=== PATIENT | male | born 1960 | race African-American/Black ===

== ENCOUNTER 2017-02-19 08:04 | Inpatient (IN) | payer MEDICAID, OTHER ==
[~2017-02-19] VITALS: Ht 182.9 cm; Wt 122.5 kg
[~2017-02-19 08:04] MED LIST: ALD50; ALLO100T57; FURO-151; GEMF600T3; KEPRA; NIFE60TA83; TIOT18CA3
[2017-02-19] MEDS ORDERED: FUROSEMIDE 40MG/4ML VIAL IV STA (09:11)
[2017-02-19 09:42] LABS: BASOPHILS % 0.9 % (0.0-2.0); EOSINOPHILS % 1.1 % (0.0-5.0); HEMATOCRIT. 41.9 % (42.0-52.0); HEMOGLOBIN. 13.8 g/dL (14.0-18.0); LYMPHOCYTES % 18.6 % (20.0-50.0); MEAN CORPUSCULAR HEMOGLOBIN 24.2 pg (28.0-32.0); MEAN CORPUSCULAR VOLUME 73.7 fL (80.0-94.0); MONOCYTES % 8.4 % (2.0-8.0); PLATELET 141 x1000/uL (130-400); RED BLOOD CELL COUNT 5.69 mill/uL (4.7-6.1); RED CELL DISTRIBUTION WIDTH 14.4 % (11.6-14.6)
[2017-02-19 09:50] LABS: PARTIAL THROMBOPLASTIN TIME 27.5 sec (23.4-31.0); PROTHROMBIN TIME 10.7 sec (9.4-11.6)
[2017-02-19 10:01] LABS: CARBON DIOXIDE 29 mEq/L (21-32); CHLORIDE 104 mEq/L (98-107); CREATINE KINASE 246 IU/L (39-308); CREATINE KINASE MB FRACTION 2.8 ng/mL (0.5-3.6)
[2017-02-19 10:03] LABS: TROPONIN I 0.06 ng/mL (0.00-0.04)
[2017-02-19] MEDS ORDERED: ALBUTEROL (0.083%) 2.5MG/3ML NEB HHN STA (11:04)
[2017-02-19] MEDS ORDERED: HYDROCODONE/ACETAMINOPHEN 5/325MG TABLET PO ONE ×2 (11:15→11:30)
[2017-02-19 13:36] LABS: *AMPHETAMINES SCREEN URINE NEGATIVE (NEGATIVE); *BARBITURATES SCREEN URINE NEGATIVE (NEGATIVE); *BENZODIAZEPINES SCREEN URINE NEGATIVE (NEGATIVE); *COCAINE SCREEN URINE NEGATIVE (NEGATIVE); CANNABINOID URINE SCREEN NEGATIVE (NEGATIVE); METHADONE URINE SCREEN NEGATIVE (NEGATIVE); OPIATES URINE SCREEN NEGATIVE (NEGATIVE); PHENCYCLIDINE URINE SCREEN NEGATIVE (NEGATIVE)
[2017-02-19 16:00] VITALS: BP 152/85
[2017-02-19] MEDS ORDERED: CLONIDINE 0.1MG TABLET PO PRN (16:15)
[2017-02-19] MEDS ORDERED: MORPHINE SULFATE 4 MG/ML CPJ (NOT FOR IM USE) IV PRN (16:15)
[2017-02-19] MEDS ORDERED: ACETAMINOPHEN 325MG TABLET PO PRN (16:15)
[2017-02-19] MEDS ORDERED: ENOXAPARIN 40MG/0.4ML SYR SUBCUT SCH (16:15)
[2017-02-19] MEDS: FUROSEMIDE 40MG/4ML VIAL IV SCH (16:15)
[2017-02-19] MEDS ORDERED: IPRATROPIUM/ALBUTEROL 0.5-3(2.5)MG/3ML NEB INH PRN (16:15)
[2017-02-19] MEDS ORDERED: GUAIFENESIN 200MG/10ML SUGAR FREE UDC PO PRN (16:15)
[2017-02-19] MEDS ORDERED: ONDANSETRON HCL 4MG/2ML VIAL IV PRN (16:15)
[2017-02-19] MEDS ORDERED: NA PHOS,M-B/NA PHOS,DI-BA ENEMA 118ML PR PRN (16:15)
[2017-02-19] MEDS ORDERED: DOCUSATE SODIUM 100MG CAPSULE PO PRN (16:15)
[2017-02-19] MEDS ORDERED: DIPHENHYDRAMINE 50MG/ML VIAL IV PRN (16:15)
[2017-02-19] MEDS ORDERED: ACETAMINOPHEN 650MG SUPP PR PRN (16:15)
[2017-02-19] MEDS ORDERED: ACETAMINOPHEN 650MG/20.3ML UDC GT PRN (16:15)
[2017-02-19] MEDS ORDERED: MAGNESIUM/ALUMINUM HYDROXIDE/SIMETHICONE 30ML UDC PO PRN (16:15)
[2017-02-19] MEDS ORDERED: CARI350T PO (18:05)
[2017-02-19] MEDS ORDERED: HYDR-519 PO (18:05)
[2017-02-19] MEDS ORDERED: ALPR2TAB2 PO (18:05)
[2017-02-19 18:08] VITALS: BP 152/85
[2017-02-19 20:00] VITALS: BP 149/90
[2017-02-19] MEDS: ENOXAPARIN 30MG/0.3ML SYR SUBCUT SCH (20:42)
[2017-02-19] MEDS: HYDROCODONE/ACETAMINOPHEN 5/325MG TABLET PO PRN (20:43)
[2017-02-19] MEDS: SODIUM CHLORIDE 0.9% INJ 3ML FLUSH IVF SCH (20:47)
[2017-02-19] MEDS: NICOTINE 21MG PATCH TD SCH (22:28)
[2017-02-19 23:05] LABS: CLARITY URINE CLEAR (CLEAR); COLOR URINE YELLOW (YELLOW); GLUCOSE URINE NEGATIVE (NEGATIVE); KETONES URINE NEGATIVE (NEGATIVE); LEUKOCYTE ESTERASE URINE NEGATIVE (NEGATIVE); NITRITE URINE NEGATIVE (NEGATIVE); OCCULT BLOOD URINE NEGATIVE (NEGATIVE); PH URINE 5.5 (4.5-8.0); PROTEIN URINE NEGATIVE (NEGATIVE); SPECIFIC GRAVITY URINE 1.019 (1.005-1.030)
[2017-02-19 23:16] LABS: *AMPHETAMINES SCREEN URINE NEGATIVE (NEGATIVE); *BARBITURATES SCREEN URINE NEGATIVE (NEGATIVE); *BENZODIAZEPINES SCREEN URINE NEGATIVE (NEGATIVE); *COCAINE SCREEN URINE NEGATIVE (NEGATIVE); CANNABINOID URINE SCREEN NEGATIVE (NEGATIVE); METHADONE URINE SCREEN NEGATIVE (NEGATIVE); OPIATES URINE SCREEN PRESUMTIVE POSITIVE (NEGATIVE); PHENCYCLIDINE URINE SCREEN NEGATIVE (NEGATIVE)
[2017-02-19 23:20] LABS: TROPONIN I 0.07 ng/mL (0.00-0.04)
[2017-02-20] VITALS: BP 153/78
[2017-02-20 04:00] VITALS: BP 138/76
[2017-02-20] MEDS: HYDROCODONE/ACETAMINOPHEN 5/325MG TABLET PO PRN ×2 (06:05→13:02)
[2017-02-20] MEDS: SODIUM CHLORIDE 0.9% INJ 3ML FLUSH IVF SCH ×3 (06:05→21:16)
[2017-02-20 07:42] LABS: BASOPHILS % 0.7 % (0.0-2.0); HEMATOCRIT. 40.9 % (42.0-52.0); HEMOGLOBIN. 13.2 g/dL (14.0-18.0); LYMPHOCYTES % 28.2 % (20.0-50.0); MEAN CORPUSCULAR HEMOGLOBIN 24.1 pg (28.0-32.0); MEAN CORPUSCULAR VOLUME 74.5 fL (80.0-94.0); MEAN PLATELET VOLUME 9.8 fl (7.4-10.4); MONOCYTES % 10.2 % (2.0-8.0); NEUTROPHILS % 58.9 % (40.0-76.0); PLATELET 132 x1000/uL (130-400); RED BLOOD CELL COUNT 5.49 mill/uL (4.7-6.1); RED CELL DISTRIBUTION WIDTH 14.5 % (11.6-14.6)
[2017-02-20 08:00] VITALS: BP 150/90
[2017-02-20 08:50] LABS: CARBON DIOXIDE 31 mEq/L (21-32); CHLORIDE 100 mEq/L (98-107); CREATINE KINASE 200 IU/L (39-308); HDL CHOLESTEROL 29 mg/dL (40-59); LDL CHOLESTEROL 114 mg/dL (5-100); TROPONIN I 0.06 ng/mL (0.00-0.04)
[2017-02-20] MEDS: ENOXAPARIN 30MG/0.3ML SYR SUBCUT SCH ×2 (08:51→21:00)
[2017-02-20] MEDS: NICOTINE 21MG PATCH TD SCH (08:54)
[2017-02-20] MEDS: FUROSEMIDE 40MG/4ML VIAL IV SCH (08:58)
[2017-02-20 12:00] VITALS: BP 159/99
[2017-02-20] MEDS ORDERED: CARISOPRODOL 350 MG TABLET PO PRN (13:15)
[2017-02-20 13:42] LABS: T4 FREE 1.15 ng/dL (0.76-1.46)
[2017-02-20] MEDS ORDERED: ALPRAZOLAM 0.5 MG TABLET PO SCH (14:00)
[2017-02-20] MEDS: NIFEDIPINE XL 60MG TAB PO SCH (14:10)
[2017-02-20] MEDS: LEVETIRACETAM 500MG TABLET PO SCH (14:11)
[2017-02-20 16:00] VITALS: BP 140/92
[2017-02-20 16:55] LABS: TROPONIN I 0.05 ng/mL (0.00-0.04)
[2017-02-20] MEDS: ALLOPURINOL 100 MG TABLET PO SCH (18:12)
[2017-02-20 20:00] VITALS: BP 119/80
[2017-02-20] MEDS: HYDROCODONE/ACETAMINOPHEN 10/325MG TABLET PO PRN (21:15)
[2017-02-20] MEDS: ALPRAZOLAM 0.5 MG TABLET PO PRN (23:47)
[2017-02-21] VITALS: BP 121/71
[2017-02-21 00:21] LABS: TROPONIN I 0.04 ng/mL (0.00-0.04)
[2017-02-21 00:22] LABS: CREATINE KINASE MB FRACTION 2.7 ng/mL (0.5-3.6)
[2017-02-21 04:00] VITALS: BP 106/66
[2017-02-21] MEDS: SODIUM CHLORIDE 0.9% INJ 3ML FLUSH IVF SCH ×2 (06:38→13:41)
[2017-02-21 08:07] LABS: CREATINE KINASE MB FRACTION 2.4 ng/mL (0.5-3.6); TROPONIN I 0.04 ng/mL (0.00-0.04)
[2017-02-21] MEDS: LEVETIRACETAM 500MG TABLET PO SCH (08:41)
[2017-02-21] MEDS: NIFEDIPINE XL 60MG TAB PO SCH (08:42)
[2017-02-21] MEDS: ALLOPURINOL 100 MG TABLET PO SCH ×3 (08:42→18:04)
[2017-02-21] MEDS: FUROSEMIDE 40MG/4ML VIAL IV SCH (08:42)
[2017-02-21] MEDS: NICOTINE 21MG PATCH TD SCH (08:44)
[2017-02-21] MEDS: ALPRAZOLAM 0.5 MG TABLET PO PRN (08:45)
[2017-02-21] MEDS: ENOXAPARIN 30MG/0.3ML SYR SUBCUT SCH (09:00)
[2017-02-21] MEDS: HYDROCODONE/ACETAMINOPHEN 10/325MG TABLET PO PRN (09:13)
[2017-02-21] MEDS ORDERED: LEVETIRACETAM 500MG TABLET PO SCH (17:00)
[2017-02-21 19:15] VITALS: BP 127/74
== END 2017-02-21 19:30 | disposition home or self-care (01) | DRG 194 ==
LOC: ER 10:36 → 7WST 10:53 → ENRESERV 12:32 → CANBEDREQ 16:04
PROVIDERS: ADMIT Family Medicine; ATTEND Family Medicine
DX: I11.0 Hypertensive heart disease with heart failure (principal); J44.9 Chronic obstructive pulmonary disease, unspecified; E78.5 Hyperlipidemia, unspecified; E78.00 Pure hypercholesterolemia, unspecified; F17.210 Nicotine dependence, cigarettes, uncomplicated; G40.909 Epilepsy, unspecified, not intractable, without status epilepticus; M10.9 Gout, unspecified; Z79.899 Other long term (current) drug therapy; Z88.0 Allergy status to penicillin; Z91.19 Patient's noncompliance with other medical treatment and regimen; I50.31 Acute diastolic (congestive) heart failure
CPT/HCPCS: 36415; 71010; 80053; 80061; 80305; 81003; 82550; 82553; 83036; 83690; 83880; 84439; 84443; 84484; 85025; 85379; 85610; 85730; 93005; 94640; 96374; 99291; J1650; J1940; J7611

== ENCOUNTER 2018-06-23 15:42 | Inpatient (IN) | payer MEDICAID ==
[~2018-06-23] VITALS: Ht 182.9 cm; Wt 120.3 kg
[~2018-06-23 15:42] MED LIST changes: -ALD50; +ALD50 PO; +ALLO100T PO; -ALLO100T57; +ALPR1TAB2 PO; -FURO-151; +FURO40TA5 PO; +GEMF600T PO; -GEMF600T3; +KEPP500 PO; -KEPRA; +LISI10TA5 PO; +NIFE60TA64 PO; -NIFE60TA83; +S350 PO
[2018-06-23] MEDS ORDERED: METHYLPREDNISOLONE SOD SUCC 125 MG/2 ML VIAL IV STA (16:02)
[2018-06-23] MEDS ORDERED: ALBUTEROL (0.083%) 2.5MG/3ML NEB HHN STA (16:02)
[2018-06-23] MEDS ORDERED: IPRATROPIUM BROMIDE (0.02%) 0.5MG/2.5ML NEB HHN STA (16:02)
[2018-06-23 16:51] LABS: BASOPHILS % 0.6 % (0.0-2.0); EOSINOPHILS % 1.2 % (0.0-5.0); HEMOGLOBIN. 13.2 g/dL (14.0-18.0); LYMPHOCYTES % 9.7 % (20.0-50.0); MEAN CORPUSCULAR HEMOGLOBIN 24.1 pg (28.0-32.0); MEAN CORPUSCULAR VOLUME 75.1 fL (80.0-94.0); MEAN PLATELET VOLUME 8.9 fl (7.4-10.4); MONOCYTES % 9.1 % (2.0-8.0); NEUTROPHILS % 79.4 % (40.0-76.0); PLATELET 157 x1000/uL (130-400); RED BLOOD CELL COUNT 5.45 mill/uL (4.7-6.1); RED CELL DISTRIBUTION WIDTH 14.9 % (11.6-14.6)
[2018-06-23 16:58] LABS: CHLORIDE 103 mEq/L (98-107)
[2018-06-23] MEDS ORDERED: LEVOFLOXACIN 750MG PREMIX 150 ML IV STA (17:39)
[2018-06-23] MEDS ORDERED: ENALAPRIL 2.5MG/2ML VIAL 2ML IV ONE (17:45)
[2018-06-23] MEDS ORDERED: FUROSEMIDE 40MG/4ML VIAL IVP ONE (17:45)
[2018-06-23 18:23] LABS: BG BASE EXCESS 0.9 mmol/L (-2.0-2.0); BG BILEVEL POS AIRWAY PRESSURE 16/5; BG DEOXYHEMOGLOBIN 1.7 % (0.0-5.0); BG FRACTION INSPIRED OXYGEN 50; BG HCO3 ACT 27.7 mmol/L (22.0-26.0); BG METHEMOGLOBIN 0.4 % (0.0-1.5); BG OXYGEN SATURATION 98.3 % (92.0-98.5); BG OXYHEMOGLOBIN 95.9 % (94.0-97.0); BG PCO2 53.3 mmHg (35.0-45.0); BG PH 7.334 (7.350-7.450); BG PO2 119.7 mmHg (75.0-100.0); BG SAMPLE SITE RIGHT RADIAL; BG VENT MODE MASK - BIPAP; BG VENT RATE 16 set
[2018-06-23 20:40] VITALS: BP 129/74
[2018-06-23] MEDS ORDERED: ONDANSETRON HCL 4MG/2ML INJ IV PRN (21:00)
[2018-06-23] MEDS ORDERED: ACETAMINOPHEN 325MG TABLET PO PRN (21:00)
[2018-06-23] MEDS ORDERED: CLONIDINE 0.1MG TABLET PO PRN (21:00)
[2018-06-23 22:00] VITALS: BP 120/71
[2018-06-23] MEDS: METHYLPREDNISOLONE SOD SUCC 40 MG/ML VIAL IV SCH (23:10)
[2018-06-23] MEDS: LEVOFLOXACIN 500MG PREMIX 100 ML IV SCH (23:10)
[2018-06-23] MEDS: FUROSEMIDE 40MG/4ML VIAL IVP SCH (23:11)
[2018-06-23] MEDS: ENOXAPARIN 40MG/0.4ML SYR SUBCUT SCH (23:12)
[2018-06-23] MEDS: IPRATROPIUM/ALBUTEROL 0.5-3(2.5)MG/3ML NEB HHN SCH (23:50)
[2018-06-24] VITALS (10 sets, daily range): BP systolic 110–149; BP diastolic 29–87
[2018-06-24 00:45] LABS: *AMPHETAMINES SCREEN URINE PRESUMTIVE POSITIVE (NEGATIVE); *BARBITURATES SCREEN URINE NEGATIVE (NEGATIVE)
[2018-06-24 00:46] LABS: *BENZODIAZEPINES SCREEN URINE NEGATIVE (NEGATIVE); *COCAINE SCREEN URINE NEGATIVE (NEGATIVE); METHADONE URINE SCREEN NEGATIVE (NEGATIVE)
[2018-06-24 00:47] LABS: CANNABINOID URINE SCREEN PRESUMTIVE POSITIVE (NEGATIVE); OPIATES URINE SCREEN PRESUMTIVE POSITIVE (NEGATIVE); PHENCYCLIDINE URINE SCREEN NEGATIVE (NEGATIVE)
[2018-06-24] MEDS: IPRATROPIUM/ALBUTEROL 0.5-3(2.5)MG/3ML NEB HHN SCH ×5 (03:59→20:17)
[2018-06-24] MEDS: METHYLPREDNISOLONE SOD SUCC 40 MG/ML VIAL IV SCH ×4 (06:26→20:27)
[2018-06-24 08:24] LABS: BASOPHILS % 0.3 % (0.0-2.0); HEMATOCRIT. 41.7 % (42.0-52.0); HEMOGLOBIN. 13.4 g/dL (14.0-18.0); LYMPHOCYTES % 8.8 % (20.0-50.0); MEAN CORPUSCULAR HEMOGLOBIN 24.6 pg (28.0-32.0); MEAN CORPUSCULAR VOLUME 76.5 fL (80.0-94.0); MEAN PLATELET VOLUME 8.8 fl (7.4-10.4); MONOCYTES % 2.6 % (2.0-8.0); NEUTROPHILS % 88.3 % (40.0-76.0); PLATELET 169 x1000/uL (130-400); RED BLOOD CELL COUNT 5.45 mill/uL (4.7-6.1); RED CELL DISTRIBUTION WIDTH 14.4 % (11.6-14.6)
[2018-06-24 08:28] LABS: CHLORIDE 100 mEq/L (98-107)
[2018-06-24 08:39] LABS: CREATINE KINASE 428 IU/L (39-308)
[2018-06-24 08:41] LABS: CREATINE KINASE MB FRACTION 5.9 ng/mL (0.5-3.6)
[2018-06-24] MEDS: FUROSEMIDE 40MG/4ML VIAL IVP SCH ×2 (09:02→17:31)
[2018-06-24 09:18] LABS: BG BASE EXCESS 2.3 mmol/L (-2.0-2.0); BG CARBOXYHEMOGLOBIN 1.6 % (0.5-1.5); BG DEOXYHEMOGLOBIN 10.3 % (0.0-5.0); BG FRACTION INSPIRED OXYGEN 21; BG HCO3 ACT 28.3 mmol/L (22.0-26.0); BG METHEMOGLOBIN 0.1 % (0.0-1.5); BG OXYGEN SATURATION 89.5 % (92.0-98.5); BG PCO2 49.3 mmHg (35.0-45.0); BG PH 7.377 (7.350-7.450); BG PO2 59.1 mmHg (75.0-100.0); BG SAMPLE SITE RIGHT BRACHIAL; BG TOTAL HEMOGLOBIN 13.9 g/dL (12.0-18.0); BG VENT MODE ROOM AIR
[2018-06-24] MEDS: GUAIFENESIN 600MG ER TABLET PO SCH ×2 (12:47→20:28)
[2018-06-24] MEDS: BENZONATATE 100MG CAPSULE PO PRN ×2 (12:47→20:28)
[2018-06-24] MEDS: LISINOPRIL 10MG TABLET PO SCH ×2 (12:47→20:28)
[2018-06-24] MEDS: NICOTINE 14MG PATCH TD SCH (12:47)
[2018-06-24] MEDS: NIFEDIPINE XL 90MG TAB PO SCH (12:47)
[2018-06-24] MEDS ORDERED: GUAIFENESIN-DM 200MG-20MG/10ML UDC PO PRN (13:30)
[2018-06-24] MEDS: ENOXAPARIN 40MG/0.4ML SYR SUBCUT SCH (20:29)
[2018-06-24] MEDS ORDERED: HYDROCODONE/ACETAMINOPHEN 10/325MG TABLET PO PRN (21:15)
[2018-06-24] MEDS: ALLOPURINOL 100 MG TABLET PO SCH (21:39)
[2018-06-24] MEDS: CARISOPRODOL 350 MG TABLET PO SCH (21:39)
[2018-06-24] MEDS: LEVETIRACETAM 500MG TABLET PO SCH (21:40)
[2018-06-24] MEDS: LEVOFLOXACIN 500MG PREMIX 100 ML IV SCH (21:40)
[2018-06-25] VITALS (7 sets, daily range): BP systolic 90–134; BP diastolic 52–82
[2018-06-25] MEDS: IPRATROPIUM/ALBUTEROL 0.5-3(2.5)MG/3ML NEB HHN SCH ×4 (00:19→12:05)
[2018-06-25] MEDS: FUROSEMIDE 40MG/4ML VIAL IVP SCH (09:09)
[2018-06-25] MEDS: METHYLPREDNISOLONE SOD SUCC 40 MG/ML VIAL IV SCH (09:09)
[2018-06-25] MEDS: CARISOPRODOL 350 MG TABLET PO SCH (09:12)
[2018-06-25] MEDS: NICOTINE 14MG PATCH TD SCH (09:13)
[2018-06-25] MEDS: GUAIFENESIN 600MG ER TABLET PO SCH (09:13)
[2018-06-25] MEDS: ALLOPURINOL 100 MG TABLET PO SCH (09:13)
[2018-06-25] MEDS: LEVETIRACETAM 500MG TABLET PO SCH (09:13)
[2018-06-25] MEDS: NIFEDIPINE XL 90MG TAB PO SCH (09:37)
[2018-06-25] MEDS: LISINOPRIL 10MG TABLET PO SCH (09:37)
== END 2018-06-25 14:23 | disposition home or self-care (01) | DRG 812 ==
LOC: ER 15:42 → EDBEDREQ 17:44 → 3WST 18:13 → EDBEDREQ 18:13 → EDBEDREQTM 18:13 → ENRESERV 18:36
PROVIDERS: ADMIT Internal Medicine; ATTEND Internal Medicine
PROC: 5A09357 Assistance with Respiratory Ventilation, Less than 24 Consecutive Hours, Continuous Positive Airway Pressure (ICD-10-PCS; principal; 2018-06-23)
DX: T43.621A Poisoning by amphetamines, accidental (unintentional), initial encounter (principal); J96.01 Acute respiratory failure with hypoxia; I50.43 Acute on chronic combined systolic (congestive) and diastolic (congestive) heart failure; J18.9 Pneumonia, unspecified organism; J96.02 Acute respiratory failure with hypercapnia; I11.0 Hypertensive heart disease with heart failure; E87.2 Acidosis; I27.20 Pulmonary hypertension, unspecified; J68.0 Bronchitis and pneumonitis due to chemicals, gases, fumes and vapors; F17.210 Nicotine dependence, cigarettes, uncomplicated; E78.1 Pure hyperglyceridemia; E66.9 Obesity, unspecified; F15.10 Other stimulant abuse, uncomplicated; F12.10 Cannabis abuse, uncomplicated; F11.10 Opioid abuse, uncomplicated; E78.5 Hyperlipidemia, unspecified; I34.0 Nonrheumatic mitral (valve) insufficiency; G40.909 Epilepsy, unspecified, not intractable, without status epilepticus; I42.9 Cardiomyopathy, unspecified; J44.1 Chronic obstructive pulmonary disease with (acute) exacerbation; G89.29 Other chronic pain; Y92.89 Other specified places as the place of occurrence of the external cause; Z82.49 Family history of ischemic heart disease and other diseases of the circulatory system; Z91.14 Patient's other noncompliance with medication regimen; Z83.3 Family history of diabetes mellitus; Z88.0 Allergy status to penicillin; Z79.899 Other long term (current) drug therapy; Z71.51 Drug abuse counseling and surveillance of drug abuser; Z68.36 Body mass index [BMI] 36.0-36.9, adult
CPT/HCPCS: 36415; 36600; 71045; 80048; 80305; 82375; 82550; 82553; 82805; 83880; 84484; 93005; 93306; 93970; 94640; 94644; 94660; 96365; 96366; 96375; 99291; J1650; J1940; J1956; J2920; J2930; J3490; J7050; J7611; J7620

== ENCOUNTER 2020-05-28 21:17 | Inpatient (IN) | payer MEDICAID ==
[~2020-05-28] VITALS: Ht 210.8 cm; Wt 105.2 kg
[~2020-05-28 21:17] MED LIST changes: +CARI350T28 PO; +NIFE-32 PO; -NIFE60TA64 PO; -S350 PO
[2020-05-29] MEDS ORDERED: ONDANSETRON HCL 4MG/2ML INJ IV STA (00:03)
[2020-05-29] MEDS ORDERED: SODIUM CHLORIDE 0.9% 1,000 ML IV ONE (00:15)
[2020-05-29 01:44] LABS: BG BASE EXCESS 1.6 mmol/L (-2.0-2.0); BG CARBOXYHEMOGLOBIN 2.1 % (0.5-1.5); BG DEOXYHEMOGLOBIN 10.3 % (0.0-5.0); BG FRACTION INSPIRED OXYGEN 21; BG HCO3 ACT 28.3 mmol/L (22.0-26.0); BG METHEMOGLOBIN 0.4 % (0.0-1.5); BG OXYGEN SATURATION 89.4 % (92.0-98.5); BG OXYHEMOGLOBIN 87.2 % (94.0-97.0); BG PCO2 53.9 mmHg (35.0-45.0); BG PH 7.338 (7.350-7.450); BG PO2 60.2 mmHg (75.0-100.0); BG SAMPLE SITE LEFT BRACHIAL; BG TOTAL HEMOGLOBIN 12.5 g/dL (12.0-18.0); BG VENT MODE VBG - N/A
[2020-05-29 01:52] LABS: HEMATOCRIT. 37.7 % (42.0-52.0); HEMOGLOBIN. 12.1 g/dL (14.0-18.0); MEAN CORPUSCULAR HEMOGLOBIN 23.9 pg (28.0-32.0); MEAN CORPUSCULAR VOLUME 74.9 fL (80.0-94.0); MEAN PLATELET VOLUME 9.2 fl (7.4-10.4); PLATELET 130 x1000/uL (130-400); RED BLOOD CELL COUNT 5.03 mill/uL (4.7-6.1); RED CELL DISTRIBUTION WIDTH 15.6 % (11.6-14.6)
[2020-05-29 01:57] LABS: CHLORIDE 102 mEq/L (98-107)
[2020-05-29 04:01] LABS: ETHANOL BLOOD < 10 mg/dL
[2020-05-29 04:45] LABS: PLATELET ESTIMATE NORMAL
[2020-05-29 05:01] LABS: CLARITY URINE CLOUDY (CLEAR); COLOR URINE DARK YELLOW (YELLOW); KETONES URINE NEGATIVE (NEGATIVE); LEUKOCYTE ESTERASE URINE TRACE (NEGATIVE); NITRITE URINE NEGATIVE (NEGATIVE); OCCULT BLOOD URINE NEGATIVE (NEGATIVE); PH URINE 5.5 (4.5-8.0); PROTEIN URINE 1+ (NEGATIVE); SPECIFIC GRAVITY URINE 1.028 (1.005-1.030)
[2020-05-29 05:14] LABS: *COCAINE SCREEN URINE NEGATIVE (NEGATIVE); METHADONE URINE SCREEN NEGATIVE (NEGATIVE); OPIATES URINE SCREEN NEGATIVE (NEGATIVE)
[2020-05-29 05:15] LABS: *AMPHETAMINES SCREEN URINE PRESUMTIVE POSITIVE (NEGATIVE); *BARBITURATES SCREEN URINE NEGATIVE (NEGATIVE); *BENZODIAZEPINES SCREEN URINE NEGATIVE (NEGATIVE); CANNABINOID URINE SCREEN NEGATIVE (NEGATIVE); PHENCYCLIDINE URINE SCREEN NEGATIVE (NEGATIVE)
[2020-05-29] MEDS ORDERED: DIPHENHYDRAMINE 50MG/ML VIAL IV PRN (09:30)
[2020-05-29] MEDS ORDERED: IPRATROPIUM/ALBUTEROL 0.5-3(2.5)MG/3ML NEB NEB PRN (09:30)
[2020-05-29] MEDS ORDERED: ONDANSETRON HCL 4MG/2ML INJ IV PRN (09:30)
[2020-05-29] MEDS ORDERED: ENOXAPARIN 40MG/0.4ML SYR SUBCUT SCH (10:00)
[2020-05-29] MEDS: FUROSEMIDE 40MG/4ML VIAL IV SCH (10:43)
[2020-05-29] MEDS: CLONIDINE 0.1MG TABLET PO PRN ×2 (12:58→19:29)
[2020-05-29] MEDS ORDERED: NITROGLYCERIN OINT 1GM/INCH UDPKT TD NR (15:00)
[2020-05-29] MEDS: AMLODIPINE 2.5MG TABLET PO SCH (15:47)
[2020-05-29 23:20] VITALS: BP 112/80
[2020-05-29 23:30] VITALS: BP 112/80
[2020-05-30 04:00] VITALS: BP 111/82
[2020-05-30] MEDS: IPRATROPIUM/ALBUTEROL 0.5-3(2.5)MG/3ML NEB HHN SCH ×3 (04:26→16:50)
[2020-05-30 07:41] LABS: EOSINOPHILS % 0.5 % (0.0-5.0); HEMATOCRIT. 37.3 % (42.0-52.0); HEMOGLOBIN. 11.9 g/dL (14.0-18.0); LYMPHOCYTES % 19.2 % (20.0-50.0); MEAN PLATELET VOLUME 9.2 fl (7.4-10.4); NEUTROPHILS % 65.3 % (40.0-76.0); PLATELET 129 x1000/uL (130-400); RED BLOOD CELL COUNT 4.97 mill/uL (4.7-6.1); RED CELL DISTRIBUTION WIDTH 15.6 % (11.6-14.6)
[2020-05-30 08:00] VITALS: BP 127/90
[2020-05-30 08:11] LABS: CHLORIDE 101 mEq/L (98-107)
[2020-05-30 08:18] LABS: LDL CHOLESTEROL 124 mg/dL (5-100)
[2020-05-30 08:19] LABS: HDL CHOLESTEROL 33 mg/dL (40-59)
[2020-05-30] MEDS: FUROSEMIDE 40MG/4ML VIAL IV SCH (08:35)
[2020-05-30] MEDS: ACETAMINOPHEN 325MG TABLET PO PRN (08:35)
[2020-05-30] MEDS: ENOXAPARIN 40MG/0.4ML SYR SUBCUT SCH (08:36)
[2020-05-30] MEDS: AMLODIPINE 2.5MG TABLET PO SCH (08:36)
[2020-05-30] MEDS ORDERED: POTASSIUM CHLORIDE 20MEQ/PACKET PO NR (09:30)
[2020-05-30] MEDS: MAGNESIUM OXIDE 400MG TABLET PO SCH (09:50)
[2020-05-30] MEDS ORDERED: MAGNESIUM 2 G PREMIX 50 ML IV NR (10:00)
[2020-05-30 12:00] VITALS: BP 97/76
[2020-05-30] MEDS: CLONIDINE 0.1MG TABLET PO SCH ×2 (13:12→21:24)
[2020-05-30 16:00] VITALS: BP 108/71
[2020-05-30 20:00] VITALS: BP 129/103
[2020-05-31] VITALS: BP 96/54
[2020-05-31 04:00] VITALS: BP 115/85
[2020-05-31] MEDS: CLONIDINE 0.1MG TABLET PO SCH (06:00)
[2020-05-31 07:50] LABS: EOSINOPHILS % 0.5 % (0.0-5.0); HEMATOCRIT. 38.3 % (42.0-52.0); HEMOGLOBIN. 12.1 g/dL (14.0-18.0); LYMPHOCYTES % 14.4 % (20.0-50.0); MEAN CORPUSCULAR HEMOGLOBIN 23.6 pg (28.0-32.0); MEAN CORPUSCULAR VOLUME 74.5 fL (80.0-94.0); MEAN PLATELET VOLUME 9.4 fl (7.4-10.4); MONOCYTES % 12.2 % (2.0-8.0); NEUTROPHILS % 71.9 % (40.0-76.0); PLATELET 139 x1000/uL (130-400); RED BLOOD CELL COUNT 5.14 mill/uL (4.7-6.1); RED CELL DISTRIBUTION WIDTH 15.2 % (11.6-14.6)
[2020-05-31 08:00] VITALS: BP 133/68
[2020-05-31 08:35] LABS: CHLORIDE 99 mEq/L (98-107)
[2020-05-31] MEDS: ENOXAPARIN 40MG/0.4ML SYR SUBCUT SCH (09:12)
[2020-05-31] MEDS: FUROSEMIDE 40MG/4ML VIAL IV SCH (09:12)
[2020-05-31] MEDS: AMLODIPINE 2.5MG TABLET PO SCH ×2 (09:12→20:15)
[2020-05-31] MEDS: MAGNESIUM OXIDE 400MG TABLET PO SCH (09:12)
[2020-05-31] MEDS: ACETAMINOPHEN 325MG TABLET PO PRN ×2 (09:13→17:43)
[2020-05-31] MEDS: IPRATROPIUM/ALBUTEROL 0.5-3(2.5)MG/3ML NEB HHN SCH ×4 (09:39→21:08)
[2020-05-31 12:00] VITALS: BP 140/78
[2020-05-31 16:00] VITALS: BP 118/80
[2020-05-31] MEDS: FUROSEMIDE 100MG/10ML VIAL IV SCH (17:05)
[2020-05-31] MEDS: POTASSIUM CHLORIDE 20MEQ TABLET SR PO SCH (17:05)
[2020-05-31 20:00] VITALS: BP 96/60
[2020-06-01] VITALS (7 sets, daily range): BP systolic 90–109; BP diastolic 53–72
[2020-06-01] MEDS: IPRATROPIUM/ALBUTEROL 0.5-3(2.5)MG/3ML NEB HHN SCH ×2 (02:40→09:01)
[2020-06-01 06:50] LABS: BASOPHILS % 0.5 % (0.0-2.0); EOSINOPHILS % 0.6 % (0.0-5.0); HEMATOCRIT. 39.7 % (42.0-52.0); HEMOGLOBIN. 12.6 g/dL (14.0-18.0); LYMPHOCYTES % 17.8 % (20.0-50.0); MEAN CORPUSCULAR HEMOGLOBIN 23.6 pg (28.0-32.0); MEAN CORPUSCULAR VOLUME 74.3 fL (80.0-94.0); MEAN PLATELET VOLUME 9.1 fl (7.4-10.4); MONOCYTES % 13.2 % (2.0-8.0); NEUTROPHILS % 67.9 % (40.0-76.0); PLATELET 122 x1000/uL (130-400); RED BLOOD CELL COUNT 5.34 mill/uL (4.7-6.1)
[2020-06-01 07:02] LABS: CHLORIDE 96 mEq/L (98-107)
[2020-06-01] MEDS: FUROSEMIDE 100MG/10ML VIAL IV SCH ×2 (07:15→17:15)
[2020-06-01] MEDS ORDERED: MAGNESIUM 2 G PREMIX 50 ML IV NR (09:00)
[2020-06-01] MEDS: AMLODIPINE 2.5MG TABLET PO SCH ×2 (09:00→21:00)
[2020-06-01] MEDS: MAGNESIUM OXIDE 400MG TABLET PO SCH (09:16)
[2020-06-01] MEDS: ENOXAPARIN 40MG/0.4ML SYR SUBCUT SCH (09:17)
[2020-06-01] MEDS: POTASSIUM CHLORIDE 20MEQ TABLET SR PO SCH ×2 (09:17→18:31)
[2020-06-01] MEDS ORDERED: LORAZEPAM 2MG/ML CPJ IV PRN (10:30)
[2020-06-01] MEDS: DOXYCYCLINE HYCLATE 100MG CAPSULE PO SCH (18:31)
[2020-06-01] MEDS: ATORVASTATIN CALCIUM 20MG TABLET PO SCH (22:19)
[2020-06-02] VITALS: BP 104/62
[2020-06-02 04:00] VITALS: BP 139/66
[2020-06-02] MEDS: FUROSEMIDE 100MG/10ML VIAL IV SCH ×2 (06:31→16:51)
[2020-06-02 08:00] VITALS: BP 156/102
[2020-06-02 08:31] LABS: BASOPHILS % 0.4 % (0.0-2.0); EOSINOPHILS % 0.7 % (0.0-5.0); HEMATOCRIT. 39.3 % (42.0-52.0); HEMOGLOBIN. 12.5 g/dL (14.0-18.0); LYMPHOCYTES % 27.1 % (20.0-50.0); MEAN CORPUSCULAR HEMOGLOBIN 23.6 pg (28.0-32.0); MEAN CORPUSCULAR VOLUME 74.2 fL (80.0-94.0); MEAN PLATELET VOLUME 9.6 fl (7.4-10.4); MONOCYTES % 12.4 % (2.0-8.0); NEUTROPHILS % 59.4 % (40.0-76.0); PLATELET 133 x1000/uL (130-400); RED CELL DISTRIBUTION WIDTH 15.2 % (11.6-14.6)
[2020-06-02 08:42] LABS: CHLORIDE 99 mEq/L (98-107)
[2020-06-02 08:55] LABS: PHOSPHORUS 3.2 mg/dL (2.5-4.9)
[2020-06-02] MEDS: DOXYCYCLINE HYCLATE 100MG CAPSULE PO SCH ×2 (09:14→17:42)
[2020-06-02] MEDS: ENOXAPARIN 40MG/0.4ML SYR SUBCUT SCH (09:14)
[2020-06-02] MEDS: AMLODIPINE 2.5MG TABLET PO SCH ×3 (09:14→21:05)
[2020-06-02] MEDS: MAGNESIUM OXIDE 400MG TABLET PO SCH (09:14)
[2020-06-02] MEDS: POTASSIUM CHLORIDE 20MEQ TABLET SR PO SCH (09:14)
[2020-06-02 12:00] VITALS: BP 141/79
[2020-06-02 16:00] VITALS: BP 139/64
[2020-06-02 20:00] VITALS: BP 100/51
[2020-06-02] MEDS: ATORVASTATIN CALCIUM 20MG TABLET PO SCH (21:03)
[2020-06-02] MEDS: ACETAMINOPHEN 325MG TABLET PO PRN (21:07)
[2020-06-03] VITALS: BP 113/80
[2020-06-03 04:00] VITALS: BP 91/59
[2020-06-03] MEDS: FUROSEMIDE 100MG/10ML VIAL IV SCH ×2 (06:16→17:31)
[2020-06-03 07:20] LABS: BASOPHILS % 0.4 % (0.0-2.0); EOSINOPHILS % 0.3 % (0.0-5.0); HEMATOCRIT. 42.2 % (42.0-52.0); HEMOGLOBIN. 13.4 g/dL (14.0-18.0); MEAN CORPUSCULAR HEMOGLOBIN 23.4 pg (28.0-32.0); MEAN CORPUSCULAR VOLUME 73.6 fL (80.0-94.0); MEAN PLATELET VOLUME 9.2 fl (7.4-10.4); MONOCYTES % 9.2 % (2.0-8.0); NEUTROPHILS % 70.1 % (40.0-76.0); PLATELET 131 x1000/uL (130-400); RED BLOOD CELL COUNT 5.74 mill/uL (4.7-6.1)
[2020-06-03 08:38] LABS: CHLORIDE 95 mEq/L (98-107)
[2020-06-03 08:46] VITALS: BP 99/60
[2020-06-03] MEDS: POTASSIUM CHLORIDE 20MEQ TABLET SR PO SCH (08:56)
[2020-06-03] MEDS: MAGNESIUM OXIDE 400MG TABLET PO SCH (08:56)
[2020-06-03] MEDS: DOXYCYCLINE HYCLATE 100MG CAPSULE PO SCH ×2 (08:56→17:31)
[2020-06-03] MEDS: ENOXAPARIN 40MG/0.4ML SYR SUBCUT SCH (08:56)
[2020-06-03 11:55] VITALS: BP 117/60
[2020-06-03 15:56] VITALS: BP 109/51
[2020-06-03 20:00] VITALS: BP 103/71
[2020-06-03] MEDS: AMLODIPINE 2.5MG TABLET PO SCH (21:00)
[2020-06-03] MEDS: ATORVASTATIN CALCIUM 20MG TABLET PO SCH (21:43)
[2020-06-04] VITALS: BP 110/64
[2020-06-04 04:00] VITALS: BP 121/78
[2020-06-04] MEDS: FUROSEMIDE 100MG/10ML VIAL IV SCH ×2 (06:16→18:53)
[2020-06-04 08:00] VITALS: BP 107/59
[2020-06-04 08:49] LABS: BASOPHILS % 0.7 % (0.0-2.0); HEMATOCRIT. 39.6 % (42.0-52.0); HEMOGLOBIN. 13.1 g/dL (14.0-18.0); LYMPHOCYTES % 21.5 % (20.0-50.0); MEAN CORPUSCULAR HEMOGLOBIN 24.1 pg (28.0-32.0); MEAN CORPUSCULAR VOLUME 72.8 fL (80.0-94.0); MEAN PLATELET VOLUME 9.1 fl (7.4-10.4); MONOCYTES % 10.6 % (2.0-8.0); NEUTROPHILS % 67.2 % (40.0-76.0); PLATELET 128 x1000/uL (130-400); RED BLOOD CELL COUNT 5.44 mill/uL (4.7-6.1)
[2020-06-04] MEDS: AMLODIPINE 2.5MG TABLET PO SCH ×2 (09:00→21:57)
[2020-06-04 09:23] LABS: CHLORIDE 92 mEq/L (98-107)
[2020-06-04] MEDS: POTASSIUM CHLORIDE 20MEQ TABLET SR PO SCH (09:35)
[2020-06-04] MEDS: MAGNESIUM OXIDE 400MG TABLET PO SCH (09:35)
[2020-06-04] MEDS: ENOXAPARIN 40MG/0.4ML SYR SUBCUT SCH (09:35)
[2020-06-04] MEDS: DOXYCYCLINE HYCLATE 100MG CAPSULE PO SCH ×2 (09:35→18:54)
[2020-06-04 12:00] VITALS: BP 100/66
[2020-06-04] MEDS ORDERED: ALBUTEROL 6.7GM HFA INHALER ORI PRN (12:00)
[2020-06-04 16:00] VITALS: BP 116/66
[2020-06-04 20:00] VITALS: BP 118/71
[2020-06-04] MEDS: ATORVASTATIN CALCIUM 20MG TABLET PO SCH (21:57)
[2020-06-04] MEDS: ACETAMINOPHEN 325MG TABLET PO PRN (21:57)
[2020-06-05] VITALS: BP 122/60
[2020-06-05 04:00] VITALS: BP 104/70
[2020-06-05] MEDS: FUROSEMIDE 100MG/10ML VIAL IV SCH ×2 (06:14→17:43)
[2020-06-05 07:23] LABS: CHLORIDE 94 mEq/L (98-107)
[2020-06-05 07:40] LABS: BASOPHILS % 0.5 % (0.0-2.0); EOSINOPHILS % 0.1 % (0.0-5.0); HEMOGLOBIN. 12.9 g/dL (14.0-18.0); LYMPHOCYTES % 14.1 % (20.0-50.0); MEAN CORPUSCULAR HEMOGLOBIN 24.1 pg (28.0-32.0); MEAN CORPUSCULAR VOLUME 72.8 fL (80.0-94.0); MONOCYTES % 8.2 % (2.0-8.0); NEUTROPHILS % 77.1 % (40.0-76.0); RED BLOOD CELL COUNT 5.36 mill/uL (4.7-6.1); RED CELL DISTRIBUTION WIDTH 14.9 % (11.6-14.6)
[2020-06-05 08:00] VITALS: BP 115/43
[2020-06-05] MEDS: MAGNESIUM OXIDE 400MG TABLET PO SCH (09:42)
[2020-06-05] MEDS: AMLODIPINE 2.5MG TABLET PO SCH ×2 (09:42→21:00)
[2020-06-05] MEDS: DOXYCYCLINE HYCLATE 100MG CAPSULE PO SCH ×2 (09:42→17:43)
[2020-06-05] MEDS: POTASSIUM CHLORIDE 20MEQ TABLET SR PO SCH (09:42)
[2020-06-05] MEDS: ENOXAPARIN 40MG/0.4ML SYR SUBCUT SCH (09:43)
[2020-06-05 10:40] LABS: PLATELET 116 x1000/uL (130-400)
[2020-06-05 12:00] VITALS: BP 120/66
[2020-06-05 16:00] VITALS: BP 124/74
[2020-06-05] MEDS: DEXAMETHASONE 10 MG/ML VIAL IV SCH (17:51)
[2020-06-05 20:00] VITALS: BP 96/57
[2020-06-05] MEDS: ATORVASTATIN CALCIUM 20MG TABLET PO SCH (22:09)
[2020-06-06] VITALS (8 sets, daily range): BP systolic 90–114; BP diastolic 58–86
[2020-06-06 07:59] LABS: BASOPHILS % 0.3 % (0.0-2.0); HEMATOCRIT. 39.3 % (42.0-52.0); HEMOGLOBIN. 12.8 g/dL (14.0-18.0); LYMPHOCYTES % 10.2 % (20.0-50.0); MEAN CORPUSCULAR HEMOGLOBIN 23.7 pg (28.0-32.0); MEAN CORPUSCULAR VOLUME 73.1 fL (80.0-94.0); MEAN PLATELET VOLUME 9.5 fl (7.4-10.4); MONOCYTES % 11.6 % (2.0-8.0); NEUTROPHILS % 77.9 % (40.0-76.0); PLATELET 149 x1000/uL (130-400); RED BLOOD CELL COUNT 5.38 mill/uL (4.7-6.1); RED CELL DISTRIBUTION WIDTH 14.9 % (11.6-14.6)
[2020-06-06] MEDS: FUROSEMIDE 100MG/10ML VIAL IV SCH (08:08)
[2020-06-06 08:09] LABS: CHLORIDE 92 mEq/L (98-107)
[2020-06-06] MEDS: AMLODIPINE 2.5MG TABLET PO SCH ×2 (09:00→21:00)
[2020-06-06] MEDS: POTASSIUM CHLORIDE 20MEQ TABLET SR PO SCH (09:44)
[2020-06-06] MEDS: DOXYCYCLINE HYCLATE 100MG CAPSULE PO SCH ×2 (09:44→17:41)
[2020-06-06] MEDS: DEXAMETHASONE 10 MG/ML VIAL IV SCH (09:45)
[2020-06-06] MEDS: MAGNESIUM OXIDE 400MG TABLET PO SCH (09:45)
[2020-06-06] MEDS: ENOXAPARIN 40MG/0.4ML SYR SUBCUT SCH (09:45)
[2020-06-06] MEDS: ATORVASTATIN CALCIUM 20MG TABLET PO SCH (23:03)
[2020-06-07] VITALS: BP 110/72
[2020-06-07 04:00] VITALS: BP 119/57
[2020-06-07 07:38] LABS: CHLORIDE 96 mEq/L (98-107)
[2020-06-07 08:00] VITALS: BP 125/64
[2020-06-07 08:03] LABS: PHOSPHORUS 2.4 mg/dL (2.5-4.9)
[2020-06-07] MEDS: DEXAMETHASONE 10 MG/ML VIAL IV SCH (09:10)
[2020-06-07] MEDS: FUROSEMIDE 100MG/10ML VIAL IV SCH (09:10)
[2020-06-07] MEDS: MAGNESIUM OXIDE 400MG TABLET PO SCH (09:10)
[2020-06-07] MEDS: POTASSIUM CHLORIDE 20MEQ TABLET SR PO SCH (09:10)
[2020-06-07] MEDS: AMLODIPINE 2.5MG TABLET PO SCH ×2 (09:11→21:00)
[2020-06-07] MEDS: ENOXAPARIN 40MG/0.4ML SYR SUBCUT SCH (09:11)
[2020-06-07] MEDS ORDERED: DEXA6TAB MT (11:47)
[2020-06-07] MEDS ORDERED: AMLO2.5T45 PO (11:47)
[2020-06-07] MEDS ORDERED: ATOR10TA69 MT (11:48)
[2020-06-07 12:00] VITALS: BP 112/68
[2020-06-07 16:00] VITALS: BP 110/70
[2020-06-07 20:00] VITALS: BP 108/70
[2020-06-07] MEDS: ATORVASTATIN CALCIUM 20MG TABLET PO SCH (21:45)
[2020-06-08] VITALS: BP 111/74
[2020-06-08 06:00] VITALS: BP 111/68
[2020-06-08 08:00] VITALS: BP 92/71
[2020-06-08] MEDS: FUROSEMIDE 100MG/10ML VIAL IV SCH (09:00)
[2020-06-08] MEDS: ENOXAPARIN 40MG/0.4ML SYR SUBCUT SCH (09:00)
[2020-06-08] MEDS: DEXAMETHASONE 10 MG/ML VIAL IV SCH (09:00)
[2020-06-08] MEDS: MAGNESIUM OXIDE 400MG TABLET PO SCH (09:00)
[2020-06-08] MEDS: POTASSIUM CHLORIDE 20MEQ TABLET SR PO SCH (09:00)
[2020-06-08] MEDS: AMLODIPINE 2.5MG TABLET PO SCH ×2 (09:00→21:00)
[2020-06-08 12:00] VITALS: BP 107/63
[2020-06-08 16:00] VITALS: BP 121/70
[2020-06-08 20:00] VITALS: BP 95/63
[2020-06-08] MEDS: ATORVASTATIN CALCIUM 20MG TABLET PO SCH (21:56)
[2020-06-09] VITALS: BP 108/71
[2020-06-09 04:00] VITALS: BP 109/68
[2020-06-09 06:44] LABS: BASOPHILS % 0.1 % (0.0-2.0); EOSINOPHILS % 0.3 % (0.0-5.0); HEMATOCRIT. 35.9 % (42.0-52.0); HEMOGLOBIN. 11.4 g/dL (14.0-18.0); MEAN CORPUSCULAR HEMOGLOBIN 23.7 pg (28.0-32.0); MEAN CORPUSCULAR VOLUME 74.4 fL (80.0-94.0); MEAN PLATELET VOLUME 9.5 fl (7.4-10.4); MONOCYTES % 11.6 % (2.0-8.0); PLATELET 197 x1000/uL (130-400); RED BLOOD CELL COUNT 4.83 mill/uL (4.7-6.1); RED CELL DISTRIBUTION WIDTH 15.1 % (11.6-14.6)
[2020-06-09 06:56] LABS: CHLORIDE 102 mEq/L (98-107)
[2020-06-09 08:00] VITALS: BP 97/56
[2020-06-09] MEDS: FUROSEMIDE 100MG/10ML VIAL IV SCH (09:00)
[2020-06-09] MEDS: DEXAMETHASONE 10 MG/ML VIAL IV SCH (09:00)
[2020-06-09] MEDS: AMLODIPINE 2.5MG TABLET PO SCH (09:00)
[2020-06-09] MEDS: POTASSIUM CHLORIDE 20MEQ TABLET SR PO SCH (09:48)
[2020-06-09] MEDS: MAGNESIUM OXIDE 400MG TABLET PO SCH (09:48)
[2020-06-09] MEDS: ENOXAPARIN 40MG/0.4ML SYR SUBCUT SCH (09:49)
[2020-06-09 12:00] VITALS: BP 110/78
[2020-06-09 16:00] VITALS: BP 110/76
[2020-06-09 20:00] VITALS: BP 107/64
[2020-06-09] MEDS: ATORVASTATIN CALCIUM 20MG TABLET PO SCH (20:38)
[2020-06-10] VITALS: BP 104/59
[2020-06-10 04:00] VITALS: BP 113/74
[2020-06-10 08:00] VITALS: BP 130/80
[2020-06-10] MEDS ORDERED: DEXAMETHASONE 6MG TABLET PO SCH (09:00)
[2020-06-10] MEDS: ENOXAPARIN 40MG/0.4ML SYR SUBCUT SCH (09:00)
[2020-06-10] MEDS: FUROSEMIDE 100MG/10ML VIAL IV SCH (09:00)
[2020-06-10] MEDS: POTASSIUM CHLORIDE 20MEQ TABLET SR PO SCH (10:41)
[2020-06-10] MEDS: MAGNESIUM OXIDE 400MG TABLET PO SCH (10:41)
[2020-06-10] MEDS: FUROSEMIDE 20MG TABLET PO SCH (10:42)
[2020-06-10 12:00] VITALS: BP 97/61
[2020-06-10 16:00] VITALS: BP 112/59
[2020-06-10] MEDS: ACETAMINOPHEN 325MG TABLET PO PRN (17:48)
[2020-06-10] MEDS: ATORVASTATIN CALCIUM 20MG TABLET PO SCH (21:00)
[2020-06-11 08:50] VITALS: BP 122/72
[2020-06-11] MEDS ORDERED: DEXAMETHASONE 4MG TABLET PO SCH (09:30)
[2020-06-11] MEDS: ENOXAPARIN 40MG/0.4ML SYR SUBCUT SCH (11:36)
[2020-06-11] MEDS: FUROSEMIDE 20MG TABLET PO SCH (11:37)
[2020-06-11] MEDS: MAGNESIUM OXIDE 400MG TABLET PO SCH (11:37)
[2020-06-11] MEDS: POTASSIUM CHLORIDE 20MEQ TABLET SR PO SCH (11:37)
[2020-06-11 12:28] VITALS: BP 135/85
[2020-06-11 15:47] VITALS: BP 137/79
[2020-06-11 16:57] VITALS: BP 137/79
== END 2020-06-11 17:33 | disposition home health service (06) | DRG 720 ==
LOC: ER 21:17 → 6WST 05-29 01:52 → ENRESERV 05-29 22:18 → 8WST 06-01 19:35 → 6WST 06-10 20:58
PROVIDERS: ADMIT Internal Medicine; ATTEND Internal Medicine
DX: A41.89 Other specified sepsis (principal); J44.1 Chronic obstructive pulmonary disease with (acute) exacerbation; J96.01 Acute respiratory failure with hypoxia; E87.6 Hypokalemia; G92 Toxic encephalopathy; E83.42 Hypomagnesemia; I11.0 Hypertensive heart disease with heart failure; I27.21 Secondary pulmonary arterial hypertension; I50.20 Unspecified systolic (congestive) heart failure; I42.9 Cardiomyopathy, unspecified; G40.909 Epilepsy, unspecified, not intractable, without status epilepticus; I49.1 Atrial premature depolarization; E87.2 Acidosis; F17.210 Nicotine dependence, cigarettes, uncomplicated; N40.0 Benign prostatic hyperplasia without lower urinary tract symptoms; K57.90 Diverticulosis of intestine, part unspecified, without perforation or abscess without bleeding; I34.0 Nonrheumatic mitral (valve) insufficiency; D64.9 Anemia, unspecified; I47.2 Ventricular tachycardia; J12.89 Other viral pneumonia; J44.0 Chronic obstructive pulmonary disease with (acute) lower respiratory infection; U07.1 COVID-19; T50.905A Adverse effect of unspecified drugs, medicaments and biological substances, initial encounter; R94.31 Abnormal electrocardiogram [ECG] [EKG]; Z60.2 Problems related to living alone; M10.9 Gout, unspecified; J96.02 Acute respiratory failure with hypercapnia; Z79.899 Other long term (current) drug therapy; Y92.89 Other specified places as the place of occurrence of the external cause; Z99.81 Dependence on supplemental oxygen; Z88.0 Allergy status to penicillin; Z71.51 Drug abuse counseling and surveillance of drug abuser; F19.90 Other psychoactive substance use, unspecified, uncomplicated; I95.9 Hypotension, unspecified
CPT/HCPCS: 36415; 36600; 71045; 73120; 74176; 80048; 80053; 80061; 80305; 80307; 80320; 80329; 81003; 82375; 82728; 82805; 83605; 83735; 83880; 84100; 84443; 84484; 85025; 85379; 86141; 93005; 93306; 93970; 96361; 96372; 96374; 96375; 99291; J1100; J1650; J1940; J2060; J3475; J7030; J7040; J8540; U0003; G0480